=== PATIENT | female | born 1960 | race Caucasian/White ===

== ENCOUNTER 2016-04-23 19:15 | Inpatient (IN) | payer OTHER ==
[~2016-04-23] VITALS: Ht 162.6 cm; Wt 90.0 kg
[~2016-04-23 19:15] MED LIST: ALPR.25; CLON-352 PO; LABE100T2 PO; MYCO360 PO; OXYC-360 PO; PROG5CAP OR; SULF1TAB47 PO; VITAMINS
[2016-04-23 19:22] VITALS: BP 153/74; PULSE 48; RESP 16; TEMP 98.4; O2SAT 99
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
[2016-04-23] MEDS ORDERED: CLON0.1T PO (19:27)
[2016-04-23] MEDS ORDERED: TACR5 PO (19:27)
[2016-04-23] MEDS ORDERED: MYCO360 PO (19:27)
[2016-04-23] MEDS ORDERED: LABE100T2 PO (19:27)
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
[2016-04-23] MEDS ORDERED: MORPHINE SULFATE 4 MG/ML INJ IV PUSH ONE (20:30)
[2016-04-23 20:34] LABS: AUTOMATED NEUTROPHIL # 9.2 TH/MM3 (1.8-7.7); BASOPHIL # 0.1 TH/MM3 (0-0.2); BASOPHIL % 1.1 % (0.0-2.0); EOSINOPHIL # 0.1 TH/MM3 (0-0.4); EOSINOPHIL % 0.6 % (0.0-4.0); HEMATOCRIT 35.3 % (35.0-46.0); HEMO FLAGS DIFF FINAL; LYMPH % 11.2 % (9.0-44.0); LYMPHOCYTE # 1.3 TH/MM3 (1.0-4.8); MEAN CELL VOLUME 90.6 FL (80.0-100.0); MEAN CORPUSCULAR HEMOGLOBIN 30.1 PG (27.0-34.0); MEAN CORPUSCULAR HGB CONC 33.2 % (32.0-36.0); MONO % 4.9 % (0.0-8.0); NEUT % 82.2 % (16.0-70.0); PLATELET COUNT 254 TH/MM3 (150-450); RED BLOOD COUNT 3.89 MIL/MM3 (4.00-5.30); RED CELL DISTRIBUTION WIDTH 13.6 % (11.6-17.2); WHITE BLOOD COUNT 11.2 TH/MM3 (4.0-11.0)
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
[2016-04-23 20:40] VITALS: O2SAT 100
[2016-04-23] MEDS ORDERED: PROPOFOL 200 MG/20 ML AMP IV ONE (20:45)
[2016-04-23 20:47] LABS: PROTHROMBIN TIME - PATIENT 10.7 SEC (9.8-11.6)
[2016-04-23 20:48] LABS: BICARBONATE 22.2 MEQ/L (21.0-32.0); POTASSIUM 4.2 MEQ/L (3.5-5.1)
[2016-04-23 20:54] VITALS: BP 165/78; PULSE 56; RESP 16; O2SAT 100
[2016-04-23] MEDS ORDERED: NALOXONE HCL 0.4 MG/ML AMP IV PRN (21:30)
[2016-04-23] MEDS ORDERED: SODIUM CHLORIDE 0.9% FLUSH 5 ML FLUSH FLUSH PRN (21:30)
--- NOTE | 2016-04-23 22:19 | RADRPT ---
EXAM DATE/TIME: 04/23/2016 21:09 [facility] COMPARISON: No previous studies available for comparison. INDICATIONS : Post reduction. MEDICAL HISTORY : None. SURGICAL HISTORY : None. ENCOUNTER: Initial ACUITY: 1 day PAIN SCORE: 5/10 LOCATION: Right ankle. FINDINGS: Two films have been obtained. The patient is in a cast. There has been a reduction of the previously seen fracture and dislocation. It does appear that the talus, medial malleolar fragment and lateral malleolar fragments are laterally displaced in relationship to the distal tibia. Calcaneal spurs ar e seen. CONCLUSION: Closed reduction as described above. Ashok Hsu MD on April 23, 2016 at 22:08 Board Certified Radiologist. This report was verified electronically.
[2016-04-23 22:30] VITALS: BP 134/75; PULSE 52; RESP 19; TEMP 98.7; O2SAT 100
[2016-04-24] VITALS (8 sets, daily range): BP systolic 116–139; BP diastolic 68–85; PULSE 48–77; RESP 16–19; TEMP 96.7–98.7; O2SAT 94–100
[2016-04-24] MEDS: MORPHINE SULFATE 4 MG/ML INJ IV PUSH PRN ×2 (01:00→05:55)
[2016-04-24] MEDS: SODIUM CHLORID 0.9% 500 ML IV SCH ×2 (03:00→12:32)
[2016-04-24] MEDS: LACTATED RINGER'S 1000 ML IV SCH (03:00)
[2016-04-24] MEDS ORDERED: INSULIN HUMAN REGULAR 1,000 UNITS/10 ML VIAL SQ PRN (03:00)
[2016-04-24 07:18] LABS: AUTOMATED NEUTROPHIL # 4.6 TH/MM3 (1.8-7.7); BASOPHIL # 0.1 TH/MM3 (0-0.2); BASOPHIL % 1.1 % (0.0-2.0); EOSINOPHIL % 0.6 % (0.0-4.0); HEMATOCRIT 30.2 % (35.0-46.0); HEMO FLAGS DIFF FINAL; LYMPH % 23.2 % (9.0-44.0); LYMPHOCYTE # 1.7 TH/MM3 (1.0-4.8); MEAN CELL VOLUME 90.8 FL (80.0-100.0); MEAN CORPUSCULAR HEMOGLOBIN 30.1 PG (27.0-34.0); MEAN CORPUSCULAR HGB CONC 33.2 % (32.0-36.0); MONO % 10.8 % (0.0-8.0); NEUT % 64.3 % (16.0-70.0); PLATELET COUNT 217 TH/MM3 (150-450); RED BLOOD COUNT 3.32 MIL/MM3 (4.00-5.30); RED CELL DISTRIBUTION WIDTH 13.7 % (11.6-17.2); WHITE BLOOD COUNT 7.1 TH/MM3 (4.0-11.0)
[2016-04-24 07:44] LABS: BICARBONATE 23.1 MEQ/L (21.0-32.0); POTASSIUM 3.6 MEQ/L (3.5-5.1)
[2016-04-24] MEDS: SODIUM CHLORIDE 0.9% FLUSH 5 ML FLUSH FLUSH SCH ×2 (09:00→19:36)
[2016-04-24] MEDS ORDERED: ceFAZolin INJ 1,000 MG VIAL ONE (09:21)
[2016-04-24] MEDS ORDERED: GENTAMICIN SULFATE 80 MG/2 ML VIAL ONE (09:21)
[2016-04-24] MEDS ORDERED: VANCOMYCIN HCL 1000 MG VIAL ONE (09:21)
[2016-04-24] MEDS ORDERED: BUPIVACAINE HCL PF 0.5% 30 ML VIAL ONE (09:23)
[2016-04-24] MEDS ORDERED: FAMOTIDINE 20 MG/2 ML VIAL ONE (09:32)
[2016-04-24] MEDS ORDERED: MIDAZOLAM HCL 2 MG/2 ML VIAL ONE (09:32)
[2016-04-24] MEDS ORDERED: METOCLOPRAMIDE HCL 10 MG/2 ML VIAL ONE (09:33)
[2016-04-24] MEDS ORDERED: DO NOT ADM ANY ANTICOAGULANT DRUGS XX PRN (11:23)
[2016-04-24] MEDS ORDERED: *morphine SULFATE 8 MG/ML PERIprocedure ONLY ONE ×3 (11:28→12:10)
[2016-04-24] MEDS ORDERED: fentaNYL CITRATE 250 MCG/5 ML AMP ONE (11:34)
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
[2016-04-24] MEDS ORDERED: ePHEDrine/NS 50 MG/5 ML SYR IV ONE (12:00)
[2016-04-24] MEDS ORDERED: PROPOFOL 200 MG/20 ML AMP IV ONE (12:00)
[2016-04-24] MEDS: DEXT 5%-NACL 0.45% 1000 ML INJ 1,000 ML IV SCH ×2 (12:00→21:26)
[2016-04-24] MEDS ORDERED: ONDANSETRON HCL 4 MG/2 ML VIAL IV PUSH ONE (12:00)
[2016-04-24] MEDS ORDERED: ACETAMINOPHEN/HYDROcodone 325 MG/7.5 MG TAB PO PRN (12:15)
[2016-04-24] MEDS ORDERED: MORPHINE SULFATE 4 MG/ML INJ IV PUSH PRN (12:15)
[2016-04-24] MEDS ORDERED: ONDANSETRON HCL 4 MG/2 ML VIAL IV PUSH PRN (12:15)
[2016-04-24] MEDS ORDERED: diphenhydrAMINE HCL 25 MG CAP PO PRN (12:15)
--- NOTE | 2016-04-24 15:37 | EKG ---
Date Performed: 04/24/2016 Time Performed: 05:10:28 PTAGE: 55 years EKG: Sinus bradycardia. rSr'(V1) - probable normal variant Borderline ECG NO PREVIOUS TRACING DOCTOR: Travon Yeh Interpretating Date/Time 04/24/2016 15:35:55
[2016-04-24] MEDS: ceFAZolin 1,000 MG/NS 100 ML IV SCH ×2 (16:45)
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
[2016-04-24] MEDS: cloNIDine HCL 0.1 MG TAB PO SCH (20:44)
[2016-04-24] MEDS: MYCOPHENOLATE SODIUM 360 MG DELAYED RELEASE TAB PO SCH (20:44)
[2016-04-24] MEDS: LABETALOL HCL 100 MG TAB PO SCH (20:45)
[2016-04-24] MEDS: TACROLIMUS 1 MG CAP PO SCH (20:45)
[2016-04-25 00:15] VITALS: BP 121/72; PULSE 63; RESP 16; TEMP 99.3; O2SAT 96
[2016-04-25] MEDS: ceFAZolin 1,000 MG/NS 100 ML IV SCH ×2 (01:13)
[2016-04-25] MEDS: LACTATED RINGER'S 1000 ML IV SCH (01:13)
[2016-04-25] MEDS: ACETAMINOPHEN/HYDROcodone 325 MG/7.5 MG TAB PO PRN ×5 (01:27→14:50)
[2016-04-25 04:20] VITALS: BP 122/73; PULSE 55; RESP 16; TEMP 97.8; O2SAT 98
[2016-04-25] MEDS: DEXT 5%-NACL 0.45% 1000 ML INJ 1,000 ML IV SCH ×2 (07:03→07:50)
[2016-04-25] MEDS: SODIUM CHLORIDE 0.9% FLUSH 5 ML FLUSH FLUSH SCH (07:47)
[2016-04-25] MEDS: MYCOPHENOLATE SODIUM 360 MG DELAYED RELEASE TAB PO SCH (07:48)
[2016-04-25] MEDS: cloNIDine HCL 0.1 MG TAB PO SCH (07:49)
[2016-04-25] MEDS: LABETALOL HCL 100 MG TAB PO SCH (07:49)
[2016-04-25] MEDS: TACROLIMUS 1 MG CAP PO SCH (07:49)
--- NOTE | 2016-04-25 07:49 | PD.ORT.PN ---
Subjective Post Op Day #: 1 Subjective Remarks doing well. pain controlled. Objective Vitals Vital Signs Date Time Temp Pulse Resp B/P Pulse Ox O2 Delivery O2 Flow Rate FiO2 04/25/16 04:20 97.8 55 16 122/73 98 04/25/16 02:09 18 04/25/16 00:15 99.3 63 16 121/72 96 04/24/16 20:15 97.3 69 16 139/79 97 04/24/16 16:00 96.7 48 16 119/71 98 04/24/16 12:49 97.9 55 16 133/68 94 04/24/16 12:15 99.0 54 15 137/80 94 Nasal Cannula 2 04/24/16 12:00 49 15 140/81 94 Nasal Cannula 2 04/24/16 11:45 65 15 151/84 94 Nasal Cannula 3 04/24/16 11:30 76 15 147/88 94 Nasal Cannula 3 04/24/16 11:23 99.1 69 15 163/85 94 Nasal Cannula 3 04/24/16 09:06 77 04/24/16 08:00 98.1 55 16 130/77 98 I/O 04/24/16 04/24/16 04/24/16 04/25/16 04/25/16 04/25/16 07:00 15:00 23:00 07:00 15:00 23:00 Intake Total 240 ml 1480 ml 1414 ml 240 ml Output Total 900 ml Balance 240 ml 580 ml 1414 ml 240 ml Intake Oral 240 ml 480 ml 720 ml 240 ml IV Total 200 ml 694 ml Other 800 ml Output Estimated Blood Loss 900 ml # Voids 1 4 3 2 # Bowel Movements 0 0 0 Result Diagram: 04/24/16 0621 04/24/16 0621 Objective Remarks in bed, nad dressing and splint c/d/i nvi Assessment & Plan Ortho Post Op Day #: 1 Problem List: Assessment and Plan s/p ORIF trimalleolar R ankle fx POD#1 NWB maintain splint norco - rx in chart ortho cleared f/up dr. joyce 1-2 weeks Mikael Baumann Apr 25, 2016 07:49
[2016-04-25 07:55] VITALS: PULSE 55
[2016-04-25 08:00] VITALS: BP 128/80; PULSE 56; RESP 16; TEMP 96.9; O2SAT 97
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
[2016-04-25] MEDS ORDERED: DOCUSATE SODIUM 100 MG CAP PO SCH (09:00)
[2016-04-25 11:55] VITALS: BP 122/81; PULSE 68; RESP 16; TEMP 98.4; O2SAT 95
[2016-04-25] MEDS ORDERED: HYDR-3580 PO (13:32)
[2016-04-25] MEDS ORDERED: GETGO ROLLING W1 MI1 (13:32)
--- NOTE | 2016-04-25 14:07 | HHI.PR ---
Subjective Remarks Doing well, having tolerated no acute distress. Cleared by ortho for dc Objective Vitals Vital Signs Date Time Temp Pulse Resp B/P Pulse Ox O2 Delivery O2 Flow Rate FiO2 04/25/16 11:55 98.4 68 16 122/81 95 04/25/16 08:00 96.9 56 16 128/80 97 04/25/16 07:55 55 04/25/16 04:20 97.8 55 16 122/73 98 04/25/16 02:09 18 04/25/16 00:15 99.3 63 16 121/72 96 04/24/16 20:15 97.3 69 16 139/79 97 04/24/16 16:00 96.7 48 16 119/71 98 I/O 04/24/16 04/24/16 04/24/16 04/25/16 04/25/16 04/25/16 07:00 15:00 23:00 07:00 15:00 23:00 Intake Total 240 ml 1480 ml 1414 ml 240 ml Output Total 900 ml Balance 240 ml 580 ml 1414 ml 240 ml Intake Oral 240 ml 480 ml 720 ml 240 ml IV Total 200 ml 694 ml Other 800 ml Output Estimated Blood Loss 900 ml # Voids 1 4 3 2 # Bowel Movements 0 0 0 Result Diagram: 04/24/1662004/24/16620 Objective Remarks GENERAL: This is a well-nourished, well-developed patient, in no apparent distress. SKIN: No rashes, warm and dry HEAD: Atraumatic. Normocephalic. EYES: Pupils equal round and reactive. Extraocular motions intact. No scleral icterus. ENT: Nose without bleeding, or drainage, Airway patent. NECK: Trachea midline. Supple CARDIOVASCULAR: Regular rate and rhythm without murmurs, gallops, or rubs. RESPIRATORY: Fair air entry bilaterally. No wheezes, rales, or rhonchi. GASTROINTESTINAL: Abdomen soft, non-tender, nondistended. Positive bowel sounds MUSCULOSKELETAL: Extremities without clubbing, cyanosis, or edema. Pedal pulses appreciated, right lower extremity in cast patient able to wiggle her toes NEUROLOGICAL: Awake and alert. Moves all extremity. Normal speech.no focal neurological deficit Procedures Right lower extremity ankle fracture ORIF A/P Assessment and Plan 55 years old female came with Right ankle fracture status post ORIF: Continue post op management per ortho, pain management DVT prophylaxis, PT OT per ortho Severe ankle pain at admission: Acute ankle fracture, patient received morphine sulfate, currently on [place] History of renal transplant 10 years ago: Continue Prograf, monitor BUN over creatinine Hypertension: Continue clonidine and labetalol, monitor blood pressure DVT prophylaxis: Per ortho Discharge Planning Discharge patient to home Condition on discharge: Improved Regular Diet as tolerated activity per ortho recommendation Rx written: [place] Follow-up with primary care physician in 2 weeks, as directed Zoe Miranda MD Apr 25, 2016 14:07
== END 2016-04-25 16:05 | disposition home or self-care (01) | DRG 493 ==
LOC: NEPB 19:15 → NEDA 21:25 → N06A 22:21
PROVIDERS: ADMIT Hospitalist; ATTEND Hospitalist
PROC: 0QSG04Z Reposition Right Tibia with Internal Fixation Device, Open Approach (ICD-10-PCS; 2016-04-24)
PROC: 0QSG04Z Reposition Right Tibia with Internal Fixation Device, Open Approach (ICD-10-PCS; 2016-04-24)
PROC: 0SSF04Z Reposition Right Ankle Joint with Internal Fixation Device, Open Approach (ICD-10-PCS; 2016-04-24)
PROC: 0QSJ04Z Reposition Right Fibula with Internal Fixation Device, Open Approach (ICD-10-PCS; principal; 2016-04-24 09:42)
DX: S82.851A Displaced trimalleolar fracture of right lower leg, initial encounter for closed fracture (principal); Z94.0 Kidney transplant status; I10 Essential (primary) hypertension; S93.431A Sprain of tibiofibular ligament of right ankle, initial encounter; V19.88XA Pedal cyclist (driver) (passenger) injured in other specified transport accidents, initial encounter; Y92.9 Unspecified place or not applicable
CPT/HCPCS: 27840; 73600; 73610; 76000; 80048; 85025; 85610; 85730; 93005; 96374; 99156; C1713; J0690; J1580; J2250; J2270; J2405; J2765; J3010; J3370; J7507; J7518